=== PATIENT | male | born 1990 | race Caucasian/White ===

== ENCOUNTER 2018-05-22 10:12 | Day surgery (SDC) | payer OTHER, BC ==
[~2018-05-22] VITALS: Ht 182.9 cm; Wt 88.9 kg
[~2018-05-22 10:12] MED LIST: DEXAMETHASONE 4 MG/ML, 1ML ONE; ONDANSETRON 2MG/ML, 2ML ONE; PROPOFOL 10 MG/ML, 20ML ONE; ROCURONIUM 10MG/ML,5ML ONE
[2018-05-22] MEDS ORDERED: MIDAZOLAM 1 MG/ML, 2ML ONE (10:17)
[2018-05-22] MEDS ORDERED: FENTANYL PF 250 MCG/5ML ONE (10:17)
[2018-05-22 10:30] VITALS: BP 122/86
[2018-05-22] MEDS ORDERED: no home meds (10:44)
[2018-05-22] MEDS ORDERED: LACTATED RINGERS 1,000 ML IV SCH (10:45)
[2018-05-22] MEDS ORDERED: BACITRACIN 50,000 UNIT ONE (11:52)
[2018-05-22] MEDS ORDERED: VANCOMYCIN 1,000 MG ONE (11:52)
[2018-05-22] MEDS ORDERED: BUPIVACAINE/PF-EPI 0.5% 1:200K ONE (11:52)
[2018-05-22] MEDS ORDERED: ONDANSETRON ODT 8 MG PO PRN (12:30)
[2018-05-22] MEDS ORDERED: LORazepam 2 MG/ML, 1ML IVPush PRN (12:30)
[2018-05-22] MEDS ORDERED: DIAZEPAM 5 MG/ML, 2ML IVPush PRN (12:30)
[2018-05-22] MEDS ORDERED: OXYcodone 5 MG/5 ML ORAL.SOL UDC PO PRN (12:30)
[2018-05-22] MEDS ORDERED: ONDANSETRON 2MG/ML, 2ML IV PRN ×2 (12:30→16:00)
[2018-05-22] MEDS ORDERED: PROMETHAZINE 25 MG/ML, 1ML IV PRN (12:30)
[2018-05-22] MEDS ORDERED: ACETAMINOPHEN 325 MG TABLET PO PRN (12:30)
[2018-05-22] MEDS ORDERED: PROPOFOL 100 ML ONE (12:42)
[2018-05-22] MEDS ORDERED: THROMBIN 5,000 UNIT VIAL TP ONE ×2 (14:45→14:55)
[2018-05-22] MEDS ORDERED: MEPERIDINE/PF 50 MG/ML ONE (15:06)
[2018-05-22] MEDS ORDERED: HYDROcodone/APAP 5/325 TABLET PO PRN (16:00)
[2018-05-22] MEDS ORDERED: FENTANYL PF 100 MCG/2ML ONE (16:09)
[2018-05-22] MEDS ORDERED: OXYcodone 5 MG/5 ML ORAL.SOL UDC ONE (16:09)
[2018-05-22] MEDS: FENTANYL PF 100 MCG/2ML IV PRN ×2 (16:11→16:20)
[2018-05-22] MEDS ORDERED: ONDANSETRON 2MG/ML, 2ML ONE (16:16)
[2018-05-22] MEDS ORDERED: HYDROmorphone 1 MG/ML, 1ML ONE (16:28)
[2018-05-22] MEDS: HYDROmorphone 2 MG/ML, 1ML IVPush PRN ×2 (16:31→16:39)
== END 2018-05-22 18:40 | disposition home or self-care (01) ==
LOC: OUT 10:12
PROVIDERS: ATTEND Urology
DX: N35.011 Post-traumatic bulbous urethral stricture (principal); Z88.1 Allergy status to other antibiotic agents
CPT/HCPCS: 53400; 88305; J1100; J1170; J2175; J2250; J2405; J2704; J3010; J7120; J3370